=== PATIENT | female | born 1950 | race Caucasian/White ===

== ENCOUNTER 2017-03-03 11:28 | Inpatient (IN) | payer OTHER, MEDICAID ==
[~2017-03-03] VITALS: Ht 160 cm; Wt 41.7 kg
[2017-03-03 11:37] VITALS: BP_SYST 153
[2017-03-03 12:16] LABS: HEMATOCRIT 34.3 % (36-48); HEMOGLOBIN 11.1 g/dL (12.0-16.0); MEAN CORPUSCULAR HEMOGLOBIN 32 pg (27-31); MEAN CORPUSCULAR HGB CONC 32 % (32-36); MEAN CORPUSCULAR VOLUME 98 fL (79.0-98.0); PLATELET COUNT (AUTO) 484 K/uL (130-430); RED BLOOD CELL COUNT(AUTO) 3.51 MIL/uL (4.2-6.2); WHITE BLOOD COUNT (AUTO) 9.5 K/uL (4.8-10.8)
[2017-03-03] MEDS ORDERED: ACETAMINOPHEN 500 MG TABLET PO ONE (12:30)
[2017-03-03 12:34] LABS: CREATININE 0.72 mg/dL (0.55-1.30); POTASSIUM 3.4 mmol/L (3.5-5.1); TOTAL BILIRUBIN 0.4 mg/dL (0.0-1.0)
[2017-03-03 12:35] LABS: ALBUMIN 2.2 g/dL (3.4-4.8)
[2017-03-03 12:44] LABS: BASOPHILS % (MANUAL) 0 % (0-2); EOSINOPHILS % (MANUAL) 0 % (0-7); LYMPHOCYTES % (MANUAL) 9 % (20-46); MONOCYTES % (MANUAL) 7 % (0-11)
[2017-03-03] MEDS ORDERED: IPRATROPIUM BROM 0.5 MG/2.5 ML VIAL.NEB (ATROVENT) INH PRN (15:45)
[2017-03-03] MEDS ORDERED: TEMAZEPAM 15 MG CAPSULE PO PRN (15:45)
[2017-03-03] MEDS ORDERED: ALBUTEROL SULFATE 0.083% 2.5 MG/3 ML VIAL.NEB INH PRN (15:45)
[2017-03-03] MEDS ORDERED: AZITHROMYCIN 500 MG/VIAL (ZITHROMAX) IV ONE ×2 (16:54)
[2017-03-03] MEDS: AZITHROMYCIN 500 MG in NS 250 ML IV SCH (17:01)
[2017-03-03 17:55] VITALS: BP_SYST 130
[2017-03-03] MEDS ORDERED: FAMO20TA8 PO (18:22)
[2017-03-03] MEDS ORDERED: LORA10TA7 PO (18:34)
[2017-03-03] MEDS ORDERED: SENN17.26 PO (18:34)
[2017-03-03] MEDS ORDERED: ASCO500T20 PO (18:34)
[2017-03-03] MEDS ORDERED: POLY17PO4 PO (18:34)
[2017-03-03] MEDS ORDERED: LACT10SO66 PO (18:34)
[2017-03-03] MEDS ORDERED: COLL100 PO (18:34)
[2017-03-03] MEDS ORDERED: [UNRECOGNIZED DRUG - CODE] PO (18:34)
[2017-03-03] MEDS ORDERED: OLAN5TAB PO (18:34)
[2017-03-03] MEDS: ALBUTEROL SULFATE 0.083% 2.5 MG/3 ML VIAL.NEB INH SCH (19:59)
[2017-03-03] MEDS: IPRATROPIUM BROM 0.5 MG/2.5 ML VIAL.NEB (ATROVENT) INH SCH (19:59)
[2017-03-03 20:00] VITALS: BP_SYST 125
[2017-03-03 20:22] VITALS: BP_SYST 130
[2017-03-03] MEDS: D5NS 1,000 ML IV SCH (20:46)
[2017-03-04] VITALS: BP_SYST 134
[2017-03-04] MEDS: ALBUTEROL SULFATE 0.083% 2.5 MG/3 ML VIAL.NEB INH SCH (00:58)
[2017-03-04] MEDS: IPRATROPIUM BROM 0.5 MG/2.5 ML VIAL.NEB (ATROVENT) INH SCH (00:58)
[2017-03-04 04:00] VITALS: BP_SYST 130
[2017-03-04 08:32] VITALS: BP_SYST 122
[2017-03-04] MEDS: LORazepam 2 MG/ML VIAL IVP PRN (09:41)
[2017-03-04] MEDS: D5NS 1,000 ML IV SCH (09:41)
[2017-03-04] MEDS: CEFEPIME 1 GM in D5W 50 ML IV SCH ×2 (12:06→20:03)
[2017-03-04 12:23] VITALS: BP_SYST 113
[2017-03-04 16:30] VITALS: BP_SYST 139
[2017-03-04] MEDS: AZITHROMYCIN 500 MG in NS 250 ML IV SCH (17:30)
[2017-03-04 20:05] VITALS: BP_SYST 131
[2017-03-05] VITALS (7 sets, daily range): BP systolic 110–159
[2017-03-05] MEDS: D5NS 1,000 ML IV SCH (04:52)
[2017-03-05] MEDS ORDERED: D5/0.45 NS 1,000 ML IV SCH (09:30)
[2017-03-05] MEDS ORDERED: FUROSEMIDE 20 MG/2 ML VIAL IVP ONE (09:30)
[2017-03-05] MEDS: CEFEPIME 1 GM in D5W 50 ML IV SCH ×2 (09:46→22:00)
[2017-03-05] MEDS: MORPHINE 2 MG/ML INJ. SYRINGE IVP PRN ×2 (11:17→21:13)
[2017-03-05 11:31] LABS: BASOPHILS % (AUTO) 0.3 % (0.0-2.0); EOSINOPHILS # (AUTO) 0.1 K/uL (0.0-0.4); EOSINOPHILS % (AUTO) 0.7 % (0.0-4.0); HEMATOCRIT 34.1 % (36-48); HEMOGLOBIN 11.1 g/dL (12.0-16.0); LYMPHOCYTES # (AUTO) 1.1 K/uL (1.0-5.5); LYMPHOCYTES % (AUTO) 12.4 % (20.5-51.5); MEAN CORPUSCULAR HEMOGLOBIN 32 pg (27-31); MEAN CORPUSCULAR HGB CONC 33 % (32-36); MEAN CORPUSCULAR VOLUME 99 fL (79.0-98.0); MONOCYTES # (AUTO) 0.4 K/uL (0.0-1.0); MONOCYTES % (AUTO) 4.5 % (1.7-9.3); NEUTROPHILS % (AUTO) 82.1 % (40.0-70.0); PLATELET COUNT (AUTO) 537 K/uL (130-430); RED BLOOD CELL COUNT(AUTO) 3.46 MIL/uL (4.2-6.2); RED CELL DISTRIBUTION WIDTH 18.3 % (9.0-15.0); WHITE BLOOD COUNT (AUTO) 8.6 K/uL (4.8-10.8)
[2017-03-05 11:52] LABS: CALCIUM 7.9 mg/dL (8.4-11.0); CREATININE 0.87 mg/dL (0.55-1.30)
[2017-03-05] MEDS ORDERED: INSULIN REGULAR, HUMAN 100 UNITS/ML, 10 ML VIAL (novoLIN R) SUBCUT PRN (14:45)
[2017-03-05] MEDS ORDERED: *TPN PER PHARMACY XX PRN (14:45)
[2017-03-05] MEDS ORDERED: DEXTROSE 50% JECT 50 ML DISP.SYRIN IVP PRN (14:45)
[2017-03-05 16:03] LABS: INR 1.3 (0.8-1.2); PROTHROMBIN TIME 12.7 SECS (9.5-12.5)
[2017-03-05] MEDS: BALSAM PERU/CASTOR OIL 60 GM OINT...G. TP SCH (16:53)
[2017-03-05] MEDS: AZITHROMYCIN 500 MG in NS 250 ML IV SCH (16:54)
[2017-03-05] MEDS ORDERED: POTASSIUM CHLORIDE 40 MEQ, LIDOCAINE JECT 2% PF 100 MG 50 MG in NS 250 ML IV ONE (19:30)
[2017-03-05] MEDS ORDERED: LIDOCAINE 2%, 20 ML MDV ONE ×2 (20:22→20:26)
[2017-03-05] MEDS ORDERED: LIDOCAINE 1%, 20 ML MDV 20 ML ONE (20:24)
[2017-03-05] MEDS: D5LR 1,000 ML IV SCH (22:00)
[2017-03-06 04:27] VITALS: BP_SYST 100
[2017-03-06 06:37] LABS: BASOPHILS % (AUTO) 0.4 % (0.0-2.0); EOSINOPHILS # (AUTO) 0.3 K/uL (0.0-0.4); EOSINOPHILS % (AUTO) 3.8 % (0.0-4.0); HEMATOCRIT 29.8 % (36-48); HEMOGLOBIN 9.4 g/dL (12.0-16.0); LYMPHOCYTES # (AUTO) 1.2 K/uL (1.0-5.5); MEAN CORPUSCULAR HEMOGLOBIN 31 pg (27-31); MEAN CORPUSCULAR HGB CONC 32 % (32-36); MEAN CORPUSCULAR VOLUME 98 fL (79.0-98.0); MONOCYTES # (AUTO) 0.7 K/uL (0.0-1.0); MONOCYTES % (AUTO) 9.8 % (1.7-9.3); PLATELET COUNT (AUTO) 383 K/uL (130-430); RED BLOOD CELL COUNT(AUTO) 3.04 MIL/uL (4.2-6.2); RED CELL DISTRIBUTION WIDTH 18.2 % (9.0-15.0); WHITE BLOOD COUNT (AUTO) 7.2 K/uL (4.8-10.8)
[2017-03-06 07:34] LABS: ALBUMIN 1.8 g/dL (3.4-4.8); CALCIUM 7.3 mg/dL (8.4-11.0); CREATININE 0.69 mg/dL (0.55-1.30); PHOSPHORUS 3.2 mg/dL (2.7-4.5); POTASSIUM 3.9 mmol/L (3.5-5.1); TOTAL BILIRUBIN 0.4 mg/dL (0.0-1.0)
[2017-03-06 08:00] VITALS: BP_SYST 125
[2017-03-06] MEDS: BALSAM PERU/CASTOR OIL 60 GM OINT...G. TP SCH (09:00)
[2017-03-06] MEDS: CEFEPIME 1 GM in D5W 50 ML IV SCH ×2 (09:09→20:45)
[2017-03-06] MEDS: LORazepam 2 MG/ML VIAL IVP PRN (09:10)
[2017-03-06] MEDS: D5LR 1,000 ML IV SCH (09:48)
[2017-03-06 11:39] VITALS: BP_SYST 109
[2017-03-06 15:37] VITALS: BP_SYST 104
[2017-03-06] MEDS: AZITHROMYCIN 500 MG in NS 250 ML IV SCH (16:28)
[2017-03-06] MEDS: FAT EMULSIONS 250 ML IV SCH (17:53)
[2017-03-06] MEDS ORDERED: SODIUM ACETATE IV SCH ×10 (18:00)
[2017-03-06] MEDS ORDERED: POTASSIUM CHLORIDE IV SCH ×10 (18:00)
[2017-03-06] MEDS ORDERED: [UNRECOGNIZED DRUG - OTHER] IV SCH ×10 (18:00)
[2017-03-06] MEDS ORDERED: TPN PERIPHERAL IV SCH ×10 (18:00)
[2017-03-06 20:00] VITALS: BP_SYST 111
[2017-03-06] MEDS: MORPHINE 2 MG/ML INJ. SYRINGE IVP PRN (20:08)
[2017-03-07] VITALS (7 sets, daily range): BP systolic 123–147
[2017-03-07] MEDS: D5LR 1,000 ML IV SCH ×2 (00:06→08:45)
[2017-03-07] MEDS: CEFEPIME 1 GM in D5W 50 ML IV SCH ×2 (08:42→20:26)
[2017-03-07] MEDS: BALSAM PERU/CASTOR OIL 60 GM OINT...G. TP SCH (08:42)
[2017-03-07] MEDS: MORPHINE 2 MG/ML INJ. SYRINGE IVP PRN ×3 (11:56→20:26)
[2017-03-07] MEDS: AZITHROMYCIN 500 MG in NS 250 ML IV SCH (17:11)
[2017-03-07] MEDS ORDERED: SODIUM ACETATE IV SCH ×20 (18:00)
[2017-03-07] MEDS ORDERED: K PHOS IV SCH ×20 (18:00)
[2017-03-07] MEDS ORDERED: TPN PERIPHERAL IV SCH ×20 (18:00)
[2017-03-07] MEDS ORDERED: [UNRECOGNIZED DRUG - OTHER] IV SCH ×20 (18:00)
[2017-03-07] MEDS ORDERED: POTASSIUM CHLORIDE IV SCH ×20 (18:00)
[2017-03-07] MEDS: FAT EMULSIONS 250 ML IV SCH (18:05)
[2017-03-08] VITALS (7 sets, daily range): BP systolic 118–157
[2017-03-08] MEDS: MORPHINE 2 MG/ML INJ. SYRINGE IVP PRN ×4 (01:21→19:46)
[2017-03-08] MEDS: D5LR 1,000 ML IV SCH (05:58)
[2017-03-08 07:17] LABS: ALBUMIN 1.4 g/dL (3.4-4.8); CALCIUM 7.1 mg/dL (8.4-11.0); CREATININE 0.6 mg/dL (0.55-1.30); PHOSPHORUS 3.6 mg/dL (2.7-4.5); POTASSIUM 3.2 mmol/L (3.5-5.1); TOTAL BILIRUBIN 0.2 mg/dL (0.0-1.0)
[2017-03-08] MEDS: CEFEPIME 1 GM in D5W 50 ML IV SCH (10:30)
[2017-03-08] MEDS: BALSAM PERU/CASTOR OIL 60 GM OINT...G. TP SCH (10:31)
[2017-03-08] MEDS: LORazepam 2 MG/ML VIAL IVP PRN ×2 (11:51→17:52)
[2017-03-08] MEDS ORDERED: TPN PERIPHERAL IV SCH ×22 (15:57→18:00)
[2017-03-08] MEDS ORDERED: POTASSIUM ACETATE IV SCH ×22 (15:57→18:00)
[2017-03-08] MEDS ORDERED: [UNRECOGNIZED DRUG - OTHER] IV SCH ×22 (15:57→18:00)
[2017-03-08] MEDS ORDERED: SODIUM ACETATE IV SCH ×22 (15:57→18:00)
[2017-03-08] MEDS: FAT EMULSIONS 250 ML IV SCH (17:31)
[2017-03-08] MEDS ORDERED: CEFEPIME 1 GM in D5W 50 ML IV SCH (21:00)
== END 2017-03-08 20:45 | DRG 193 ==
LOC: SED 11:28 → STU 15:42
PROVIDERS: ADMIT Internal Medicine Hospice and Palliative Medicine; ATTEND Internal Medicine Hospice and Palliative Medicine
DX: J18.9 Pneumonia, unspecified organism (principal); E43 Unspecified severe protein-calorie malnutrition; F03.90 Unspecified dementia, unspecified severity, without behavioral disturbance, psychotic disturbance, mood disturbance, and anxiety; J98.19 Other pulmonary collapse; Z68.1 Body mass index [BMI] 19.9 or less, adult; I34.0 Nonrheumatic mitral (valve) insufficiency; D63.8 Anemia in other chronic diseases classified elsewhere; Q90.9 Down syndrome, unspecified; G40.909 Epilepsy, unspecified, not intractable, without status epilepticus; Z79.899 Other long term (current) drug therapy; Z87.81 Personal history of (healed) traumatic fracture; Z88.0 Allergy status to penicillin; Z88.1 Allergy status to other antibiotic agents
CPT/HCPCS: 36415; 71010; 71250-TC; 72170-TC; 73502; 80048; 80053; 82962; 83605; 83735-TC; 83880; 84100-TC; 84478-TC; 84484; 85007; 85025; 85027; 85610-TC; 85730-TC; 87040-TC; 87081; 93005; 94640; 96365; 97530-GP; 99285; J0456; J0610; J0692; J1815; J1940; J2001; J2060; J2270; J3475; J3480; J7042; J7050; J7060; J7120

== ENCOUNTER 2017-03-27 19:11 | Emergency (ER) | payer OTHER, MEDICAID ==
[~2017-03-27] VITALS: Ht 167.6 cm; Wt 68.0 kg
[~2017-03-27 19:11] MED LIST: ASCO500T20 GT; COLL100 GT; FAMO20TA8 PO; LACT10SO66 PO; LORA10TA7 PO; OLAN5TAB PO; POLY17PO4 PO; SENN17.26 PO; [UNRECOGNIZED DRUG - CODE] PO
[2017-03-27 19:15] VITALS: BP_SYST 137
[2017-03-27] MEDS ORDERED: LORazepam 2 MG/ML VIAL (FOR ER USE) IVP ONE (19:30)
[2017-03-27] MEDS ORDERED: LORazepam 2 MG/ML VIAL (FOR ER USE) IM ONE (19:30)
[2017-03-27] MEDS ORDERED: KETOROLAC TROMETHAMINE 60 MG/2 ML VIAL IM ONE (19:30)
[2017-03-27] MEDS ORDERED: GASTROGRAFIN 120 ML ONE (19:31)
[2017-03-27] MEDS ORDERED: DULR10 RC (20:04)
[2017-03-27] MEDS ORDERED: ZIN220 GT (20:04)
[2017-03-27] MEDS ORDERED: NA P118E RC (20:04)
[2017-03-27] MEDS ORDERED: FER300L GT (20:04)
[2017-03-27] MEDS ORDERED: MULT-300 GT (20:04)
[2017-03-27] MEDS ORDERED: MAGN400O4 GT (20:04)
[2017-03-27] MEDS ORDERED: LORA1TAB GT (20:18)
[2017-03-27] MEDS ORDERED: TEMA15CA51 GT (20:18)
[2017-03-27] MEDS ORDERED: OLAN5TAB3 GT (20:18)
[2017-03-27 21:30] VITALS: BP_SYST 134
== END 2017-03-27 21:30 ==
LOC: SED 19:11
DX: Z43.1 Encounter for attention to gastrostomy (principal); T84.020A Dislocation of internal right hip prosthesis, initial encounter; F03.90 Unspecified dementia, unspecified severity, without behavioral disturbance, psychotic disturbance, mood disturbance, and anxiety; Z88.0 Allergy status to penicillin; Z88.1 Allergy status to other antibiotic agents; Z79.899 Other long term (current) drug therapy
CPT/HCPCS: 43760; 72170; 74240; 96372; 99284; J1885; J2060; Q9963

== ENCOUNTER 2017-04-15 20:39 | Emergency (ER) | payer OTHER, MEDICAID ==
[~2017-04-15] VITALS: Ht 152.4 cm; Wt 44.5 kg
[~2017-04-15 20:39] MED LIST changes: +DULR10 RC; -FAMO20TA8 PO; +FER300L GT; -LACT10SO66 PO; -LORA10TA7 PO; +LORA1TAB GT; +MAGN400O4 GT; +MULT-300 GT; +NA P118E RC; -OLAN5TAB PO; +OLAN5TAB3 GT; -POLY17PO4 PO; -SENN17.26 PO; +TEMA15CA51 GT; +ZIN220 GT; -[UNRECOGNIZED DRUG - CODE] PO
--- NOTE | 2017-04-15 20:41 | NUR ---
Patient to ER bed 03 to gown for evaluation. Side rails up.
[2017-04-15 20:42] VITALS: BP_SYST 136
--- NOTE | 2017-04-15 20:45 | NUR ---
Dr. Brown at bedside.
--- NOTE | 2017-04-15 20:50 | NUR ---
GT REPLACED at this time by Dr. Soto. 20 fr. Patient tolerated well. Will verify placement.
[2017-04-15] MEDS ORDERED: GASTROGRAFIN 120 ML ONE (21:13)
--- NOTE | 2017-04-15 21:19 | NUR ---
automated weaver at bedside.
--- NOTE | 2017-04-15 21:45 | NUR ---
Patient lying in bed with eyes closed. Rise and fall of chest observed. No sign of distress noted. VSS. Will continue to monitor.
--- NOTE | 2017-04-15 22:15 | NUR ---
Patient GT tube placement verified. Patient A/O x 0. Patient stable. Will call transport to discharge back to facility.
[2017-04-15 23:00] VITALS: BP_SYST 136
--- NOTE | 2017-04-15 23:00 | NUR ---
Patient a/o X 0. Unable to comprehend discharge instructions. Packet given with discharge papers and instructions to EMS ([facility] unit 223) Patient in stable condition. ID arm band removed. Reported to Catarino Marcos. Nurse Rachael accepted report.
== END 2017-04-15 23:00 | disposition home or self-care (01) ==
LOC: SED 20:39
DX: Z43.1 Encounter for attention to gastrostomy (principal); J44.9 Chronic obstructive pulmonary disease, unspecified; F20.9 Schizophrenia, unspecified; F03.90 Unspecified dementia, unspecified severity, without behavioral disturbance, psychotic disturbance, mood disturbance, and anxiety; Z88.0 Allergy status to penicillin; Z88.1 Allergy status to other antibiotic agents; Z79.899 Other long term (current) drug therapy
CPT/HCPCS: 43760; 74240; 99284; Q9963